=== PATIENT | female | born 1985 | race Caucasian/White ===

== ENCOUNTER → 2019-09-02 | Outpatient (CLI) | payer OTHER ==
--- NOTE | 2019-09-02 10:29 | WOMENS IMAGING REPORT ---
EXAM DESCRIPTION: BILAT DIAGNOSTIC MAMMO W/CAD; U/S BREAST UNILAT LIMITED COMPLETED DATE/TIME: 09/02/2019 9:28 am; 09/02/2019 10:17 am REASON FOR STUDY: N63.10 UNSPECIFIED LUMP; N63.10 RIGHT BREAST N63.10 UNSPECIFIED LUMP IN THE RIGHT BREAST, UNSPECIFIED JASON COMPARISON: None. EXAM PARAMETERS: Standard craniocaudal and mediolateral oblique views of each breast recorded using digital acquisition. Additional "push-back" craniocaudal and mediolateral oblique images acquired. True lateral and cone compression views right breast. Read with the assistance of CAD: .[employer] Version 9.2 LIMITATIONS: None. FINDINGS: IMPLANTS: Bilateral subpectoral implants. RIGHT BREAST MASSES: No suspicious masses. CALCIFICATIONS: No new or suspicious calcifications. ARCHITECTURAL DISTORTION: None. DEVELOPING DENSITY: None. ASYMMETRY: None noted. OTHER: No other significant findings. LEFT BREAST MASSES: No suspicious masses. CALCIFICATIONS: No new or suspicious calcifications. ARCHITECTURAL DISTORTION: None. DEVELOPING DENSITY: None. ASYMMETRY: None noted. OTHER: No other significant finding. Ultrasound of the right breast was normal. IMPRESSION: No evidence of malignancy. BREAST DENSITY: b. There are scattered areas of fibroglandular density. BIRAD: ASSESSMENT: 2 Benign findings. RECOMMENDATION: RECOMMENDED FOLLOW UP: Birads 1 or 2: No breast imaging finding to explain the patie nt's presenting complaint. Further intervention should be based on the degree of clinical suspicion. SPECIFIC INTERVENTION/IMAGING/CONSULTATION RECOMMENDED:No additional intervention/ imaging/consultati on needed at this time. COMMUNICATION:The imaging findings were not discussed with the patient. Her referring provider has be en notified of the findings. COMMENT: The patient has been notified of the results by letter per SA requirements. Additional no tification policies are in place for contacting patient with suspicious or incomplete findings. Quality ID #225: The [employer] recommends an annual screening mammogram for women aged 40 years or over. This facility utilizes a reminder system to ensure that all patients receive reminder letters, and/or direct phone calls for appointments. This includes reminders for routine scr eening mammograms, diagnostic mammograms, or other Breast Imaging Interventions when appropriate. Th is patient will be placed in the appropriate reminder system. TECHNICAL DOCUMENTATION: FINDING NUMBER: (1) ASSESSMENT: (1) JOB ID: [id number] [employer]- All Rights Reserved Reading location - IP/workstation name: [email or web address]
--- NOTE | 2019-09-02 10:29 | WOMENS IMAGING REPORT ---
EXAM DESCRIPTION: BILAT DIAGNOSTIC MAMMO W/CAD; U/S BREAST UNILAT LIMITED COMPLETED DATE/TIME: 09/02/2019 9:28 am; 09/02/2019 10:17 am REASON FOR STUDY: N63.10 UNSPECIFIED LUMP; N63.10 RIGHT BREAST N63.10 UNSPECIFIED LUMP IN THE RIGHT BREAST, UNSPECIFIED JASON COMPARISON: None. EXAM PARAMETERS: Standard craniocaudal and mediolateral oblique views of each breast recorded using digital acquisition. Additional "push-back" craniocaudal and mediolateral oblique images acquired. True lateral and cone compression views right breast. Read with the assistance of CAD: .[employer] Room Manager Version 9.2 LIMITATIONS: None. FINDINGS: IMPLANTS: Bilateral subpectoral implants. RIGHT BREAST MASSES: No suspicious masses. CALCIFICATIONS: No new or suspicious calcifications. ARCHITECTURAL DISTORTION: None. DEVELOPING DENSITY: None. ASYMMETRY: None noted. OTHER: No other significant findings. LEFT BREAST MASSES: No suspicious masses. CALCIFICATIONS: No new or suspicious calcifications. ARCHITECTURAL DISTORTION: None. DEVELOPING DENSITY: None. ASYMMETRY: None noted. OTHER: No other significant finding. Ultrasound of the right breast was normal. IMPRESSION: No evidence of malignancy. BREAST DENSITY: b. There are scattered areas of fibroglandular density. BIRAD: ASSESSMENT: 2 Benign findings. RECOMMENDATION: RECOMMENDED FOLLOW UP: Birads 1 or 2: No breast imaging finding to explain the patie nt's presenting complaint. Further intervention should be based on the degree of clinical suspicion. SPECIFIC INTERVENTION/IMAGING/CONSULTATION RECOMMENDED:No additional intervention/ imaging/consultati on needed at this time. COMMUNICATION:The imaging findings were not discussed with the patient. Her referring provider has be en notified of the findings. COMMENT: The patient has been notified of the results by letter per SA requirements. Additional no tification policies are in place for contacting patient with suspicious or incomplete findings. Quality ID #225: The [employer] recommends an annual screening mammogram for women aged 40 years or over. This facility utilizes a reminder system to ensure that all patients receive reminder letters, and/or direct phone calls for appointments. This includes reminders for routine scr eening mammograms, diagnostic mammograms, or other Breast Imaging Interventions when appropriate. Th is patient will be placed in the appropriate reminder system. TECHNICAL DOCUMENTATION: FINDING NUMBER: (1) ASSESSMENT: (1) JOB ID: [id number] [employer]- All Rights Reserved Reading location - IP/workstation name: [email or web address]
== END ==
LOC: WI 08:45
PROVIDERS: ATTEND Nurse Practitioner Family
DX: N63.10 Unspecified lump in the right breast, unspecified quadrant (principal); Z98.82 Breast implant status
CPT/HCPCS: 76642; 77066

== ENCOUNTER → 2020-05-26 | Outpatient (CLI) | payer OTHER ==
--- NOTE | 2020-05-26 16:15 | RADIOLOGY REPORT (SQ) ---
EXAM DESCRIPTION: U/S NON-OB PELVIS TV W/O DOP IMAGES COMPLETED DATE/TIME: 05/26/2020 4:04 pm REASON FOR STUDY: R10.32 LEFT LOWER QUADRANT PAIN R10.32 LEFT LOWER QUADRANT PAIN COMPARISON: None. TECHNIQUE: Dynamic and static grayscale images acquired of the pelvis via transvaginal approach and recorded on PACS. Additional selected color Doppler and spectral images recorded. LIMITATIONS: None. FINDINGS: UTERUS: Hysterectomy 2017 ENDOMETRIAL STRIPE: See above CERVIX: See above RIGHT OVARY AND DOPPLER: Normal size. No worrisome masses. Normal arterial vascular flow without evid ence for torsion. LEFT OVARY AND DOPPLER: Normal size. No worrisome masses. Normal arterial vascular flow without evide nce for torsion. FREE FLUID: None noted. OTHER: No other significant finding. MEASUREMENTS: UTERUS: Absent ENDOMETRIAL STRIPE: Absent RIGHT OVARY: 2.6 x 2.4 x 1.9 cm. Seen transabdominally. LEFT OVARY: 4.7 x 3.2 x 3.4 cm. Seen transabdominally. IMPRESSION: NORMAL POST HYSTERECTOMY PELVIC ULTRASOUND. TECHNICAL DOCUMENTATION: JOB ID: [id number] 2010 [employer]- All Rights Reserved Rev-04/11 Reading location - IP/workstation name: [email or web address]
== END ==
LOC: RAD 14:36
PROVIDERS: ATTEND Nurse Practitioner Acute Care
DX: R10.32 Left lower quadrant pain (principal)
CPT/HCPCS: 76830

== ENCOUNTER → 2020-07-06 | Day surgery (SDC) | payer OTHER ==
--- NOTE | 2020-07-06 16:24 | RADIOLOGY REPORT (SQ) ---
EXAM DESCRIPTION: U/S BIOPSY THYROID IMAGES COMPLETED DATE/TIME: 07/06/2020 2:29 pm REASON FOR STUDY: E04.1 NONTOXIC SINGLE THYROID NODULE E04.1 NONTOXIC SINGLE THYROID NODULE COMPARISON: None. TECHNIQUE: The procedure, risks, benefits, and alternatives were discussed with the patient in the p reprocedural area, and all questions were answered. Informed consent was obtained verbally and in wri ting. The patient was then brought to the procedural suite, positioned supine on a gurney, and a time-out w as performed. Selected grayscale and color Doppler images of the nodule in the midportion of the lef t lobe of the thyroid gland were then obtained ; based review of these images an appropriate percutan eous access site was selected. The area around the selected access site was subsequently prepped and draped with 2% chlorhexidine utilizing standard sterile technique. Then, after the access site was an esthetized with 1% lidocaine, a 25 gauge needle was advanced into the lesion of interest utilizing so nographic guidance ; after each pass the sample was submitted to cytopathology for review and in tota l 3 passes were performed. The patient tolerated the procedure well with local anesthesia. At the end of the procedure the patient's condition was unchanged from the preprocedural baseline. Documentation of owmg-nx-wple time the proceduralist spent monitoring the patient: 25 minutes. LIMITATIONS: None. FINDINGS: PATHOLOGY: Pending. IMPRESSION: Successful ultrasound-guided fine-needle aspiration of the nodule in the midportion of t he left lobe of the thyroid gland. COMMENT: Patient medication list reviewed: Yes- Quality ID# [id number]:Eligible professional attests to doc umenting in the medical record they obtained, updated, or reviewed the patient's current medications. TECHNICAL DOCUMENTATION: JOB ID: [id number] 2010 [employer]- All Rights Reserved Reading location - IP/workstation name: [email or web address]
== END ==
LOC: RAD 12:27
PROVIDERS: ATTEND Nurse Practitioner Family
DX: E04.1 Nontoxic single thyroid nodule (principal)
CPT/HCPCS: 10005; 88173